=== PATIENT | male | born 1985 | race Caucasian/White ===

== ENCOUNTER 2018-09-16 11:08 | Emergency (ER) | payer MEDICAID, SELFPAY ==
[2018-09-16 11:09] VITALS: BP 135/95; PULSE 87; RESP 16; TEMP 36.8; O2SAT 98; BMI 30.5
--- NOTE | 2018-09-16 11:27 | ED.DCSUM_ITS ---
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 and here when he has been in detox and sober for about 6 months indicates today was simply putting on his boot and as he push to put his boot on he had pain to the right paralumbar back he took a oral Toradol tablet did not help and he came in for evaluation, no trauma no fever no cough no numbness weakness paresthesias normal bowel bladder complaints never been told he requires back surgery he does exercise by lifting heavy weights but again no trauma Physical Examination: [] 135/80 General, no distress resting comfortably HEENT is generally unremarkable The neck is supple no adenopathy Cardiovascular, regular rate and rhythm Lungs, clear bilateral Abdomen, soft nontender Back, he has pain to the right paralumbar back there is no midline CT or lumbar spine pain Extremities, no clubbing cyanosis or edema Neurologic, awake alert answering questions appropriately moving all 4 extremities, there is no numbness weakness paresthesias is full range of motion of his legs the hips knees ankles and feet he denies any neurologic abnormalities or complaints he indicates he is able to walk he prefers to remain still that helps his pain Test Results: [] Emergency Department Course and Treatment: [] Long conversation with him there is nothing to suggest this time cauda equina or anything else life-threatening or acute he indicates he is had this exact same pain in the past he is not currently under the care of physician, at this time is comfortable with discharge home IM Toradol, Flexeril, Naprosyn he will be placed off work and he is referred to [facility] processing control [facility] for further management and will return for change in symptoms Treatment Plan: [] Disposition: [] Home stable Impression: [] Right paralumbar back pain history of sciatica This note was generated with [employer] dictation software. It may contain incorrect words, spelling, and punctuation that were not noted in review of the chart prior to signing ED Disposition - Plan for ED Patient: Chief Complaint: Back
--- NOTE | 2018-09-16 11:27 | ED.DEP ---
ED Disposition - Plan for ED Patient: Chief Complaint: Back Instructions: ED Spasm Back No Trauma Prescriptions: Naproxen [Naprosyn] 500 mg PO BID PRN #20 tab Cyclobenzaprine [Flexeril] 10 mg PO TID PRN #10 tab PRN Reason: Muscle Spasm Referrals: Juan A Fitch III, MD [STAFF PHYSICIAN] - Katerina Gonzalez [NON-STAFF] -
[2018-09-16] MEDS: Ketorolac 60 MG/2 ML Vial IM (11:31)
[2018-09-16 11:54] VITALS: BP 124/71; PULSE 62; RESP 15; O2SAT 95
== END 2018-09-16 12:01 | disposition home or self-care (01) ==
LOC: ED 11:41
PROVIDERS: Emergency Provider Emergency Medicine; Family Provider Family Medicine; PCP Family Medicine
DX: M54.5 Low back pain (principal); F11.11 Opioid abuse, in remission; Z87.39 Personal history of other diseases of the musculoskeletal system and connective tissue
CPT/HCPCS: 96372; 99283